=== PATIENT | male | born 1970 | race Caucasian/White ===

== ENCOUNTER 2025-04-18 11:30 | Emergency (ER) | payer BC, SELFPAY ==
[2025-04-18 11:39] VITALS: BP 168/110; PULSE 80; RESP 18; TEMP 36.6; O2SAT 98
--- NOTE | 2025-04-18 11:42 | W.ED.GENAD ---
Discharge Plan Disposition Patient Disposition: Home Discharge Details Clinical Impression: Immunization, tetanus-diphtheria, Laceration of left eye, Abrasion of cornea, left Primary Care Provider: Unknown,Unknown ED Provider: Pop Lozano Discharge Instructions Additional Instructions: You were seen in the emergency department for your eye laceration. Your tetanus was updated. Your eye was bandaged. Please drive directly to the following address: Emergency Department [address] [place] [address] Discharge Data Discharge Date/Time-TO BE ENTERED AT DEPARTURE: 04/18/25 13:18 HPI General Date/Time Provider Initiated Documentation: 04/18/25 11:41. HPI Narrative: MDM Primary survey intact. Reassuring shock index. On secondary survey patient has bleeding to his left thigh from the medial canthus. There is no signs of globe rupture. Patient's tetanus has been updated. Suspect he will benefit from oculoplastics at [facility]. Will obtain visual acuity. I am not suspicious for retrobulbar hematoma given no afferent pupillary defect. I provided the patient with acetaminophen. I canPatient does have uptake on fluorescein. Given need for transfer will defer erythromycin ointment at this point in time. He has received tetracaine but still has significant discomfort. Patient case discussed w/ophto @ [facility]. Accepted by Dr. Granger to the ED. I did not feel that a CT would alter management at [facility] so I did not want to delay patient transfer to tertiary care. Patient driven by friend to [facility]. HPI The patient presents for evaluation of a left eye injury. 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 This is an unprecedented incident in his career. He reports no use of contact lenses or glasses and has no other injuries. He is not currently on any blood thinners or daily aspirin regimen. He has not taken any medication for pain relief. Exam General: Well-appearing in no acute distress speaking in complete sentences. Head: Normocephalic, atraumatic. Eye: Extraocular eye movements intact. Left eye Left eye with scleral hematoma. There appears to be visible muscle on the medial aspect of the left eye at approximately the 9 o'clock position. Patient has uptake on fluorescein stain adjacent to pupil. He has no negative Sidel sign. He has no afferent pupillary defect. He does have a complex laceration just medial to the medial canthus of the left eye. There is some bleeding from the medial canthus. Anterior chamber deep and quiet. Lids appear normal. No obvious foreign bodies. No hypopyon nor hyphema. R 20/20 L 20/40 Ear, nose, mouth, throat: Grossly normal inspection. Normal voice, handling secretions normally. Neck: Trachea midline. Cardiovascular: Well-perfused distal extremities. Respiratory: Nonlabored respiration. Gastrointestinal: Nondistended abdomen. Musculoskeletal: No edema. Moving all 4 extremities spontaneously. Skin: Normal for age and race, grossly normal temperature and turgor. No acute rash. Neurologic: Alert and appropriate, no apparent acute deficits. GCS 15 Psychiatric: Mood and manner are appropriate. Grooming and personal hygiene are appropriate. 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 Course Vital Signs Vital signs: Vital Signs Temperature 36.6 C 04/18/25 11:39 Pulse 80 04/18/25 11:39 Respiratory Rate 18 04/18/25 11:39 Blood Pressure 168/110 H 04/18/25 11:39 Pulse Oximetry 98 04/18/25 11:39 Temperature 36.6 C 04/18/25 11:39 Temperature Source Tympanic 04/18/25 11:39 Pulse 80 04/18/25 11:39 Respiratory Rate 18 04/18/25 11:39 Blood Pressure 168/110 H 04/18/25 11:39 Pulse Oximetry 98 04/18/25 11:39 Pain Level 4 04/18/25 11:39 PFSH All Active Problems (Updated 04/18/25 @ 12:20 by Pop Lozano MD) Abrasion of cornea, left (Acute) Laceration of left eye (Acute) Immunization, tetanus-diphtheria (Acute) Social History Smoking/Tobacco Use Status: Never Smoking risk assessment performed?: Yes Alcohol Intake: current Alcohol Intake frequency: 0-2 drinks per day Drug use: Never Substance use type: does not use Housing: house Do you feel safe at home: Yes Do you feel safe in your relationship?: Yes
[2025-04-18] MEDS: Diph,Pertuss(Acell),Tet Vac/Pf 0.5 ML SYR IM (11:54)
[2025-04-18] MEDS: Acetaminophen 500 MG TAB 1000 MG PO (11:56)
[2025-04-18] MEDS: Tetracaine 0.5% 4 ML BTL OP (11:56)
[2025-04-18] MEDS: Fluorescein STRIPS 100/BOX 1 MG OP (11:56)
== END 2025-04-18 13:18 | disposition home or self-care (01) ==
LOC: ER 13:39
PROVIDERS: Emergency Provider Emergency Medicine
DX: S05.32XA Ocular laceration without prolapse or loss of intraocular tissue, left eye, initial encounter (principal); W29.8XXA Contact with other powered hand tools and household machinery, initial encounter; Z23 Encounter for immunization
CPT/HCPCS: 99283 ×2; 90471; 90715